=== PATIENT | male | born 1950 | race Caucasian/White ===

== ENCOUNTER 2018-01-05 15:06 | Emergency (ER) | payer MEDICARE, OTHER ==
[~2018-01-05] VITALS: Ht 182.9 cm; Wt 108.2 kg
[~2018-01-05 15:06] MED LIST: ALPR-475 PO; ATENOLOL PO; CIPR500T87 PO; HYDROCHLOROTHIAZIDE PO; IBUP-1222 PO; LOVASTATIN PO; OXYC-302 PO
[2018-01-05 15:14] VITALS: BP 134/56
[2018-01-05] MEDS ORDERED: METHOCARBAMOL 750 MG TABLET PO ONE (16:30)
[2018-01-05] MEDS ORDERED: KETOROLAC 30 MG/1 ML IM ONE (16:30)
[2018-01-05] MEDS ORDERED: KETOROLAC 30 MG/1 ML ONE (16:53)
[2018-01-05] MEDS ORDERED: METHOCARBAMOL 750 MG TABLET ONE (16:53)
== END 2018-01-05 17:13 | disposition home or self-care (01) ==
LOC: ED 17:05
DX: M51.36 Other intervertebral disc degeneration, lumbar region (principal); M12.88 Other specific arthropathies, not elsewhere classified, other specified site; I10 Essential (primary) hypertension
CPT/HCPCS: 72110; 96372; 99284; J1885

== ENCOUNTER → 2018-05-23 | Outpatient (CLI) | payer MEDICARE, OTHER ==
[~2018-05-23] MED LIST changes: +CHOL200024 PO; +IBUP-1223 PO
[2018-05-23 13:08] LABS: MICROSCOPIC NOT IND
[2018-05-23 13:09] LABS: BASOPHILS # (AUTO) 0.02 x10^3/uL (0-0.1); BASOPHILS % (AUTO) 0 % (0-1); EOSINOPHILS # (AUTO) 0.12 x10^3/uL (0-0.4); EOSINOPHILS % (AUTO) 2 % (1-7); LYMPHOCYTES % (AUTO) 10 % (22-44); MD NO; MEAN CORPUSCULAR HEMOGLOBIN 33.1 pg (27.5-34.5); MEAN CORPUSCULAR HGB CONC 34.4 g/dL (33.2-36.2); MEAN PLATELET VOLUME 6.8 fL (7.4-10.4); MONOCYTES # (AUTO) 1.44 x10^3/uL (0.2-0.8); MONOCYTES % (AUTO) 18 % (2-9); NEUTROPHILS # (AUTO) 5.59 x10^3/uL (1.8-6.8); NEUTROPHILS % (AUTO) 70 % (42-75); PLATELET COUNT 221 x10^3/uL (130-400); RED BLOOD COUNT 4.81 x10^6/uL (4.38-5.82); RED CELL DISTRIBUTION WIDTH 13.7 % (9.4-14.8)
[2018-05-23 13:10] LABS: CULTURE INDICATED? NO
[2018-05-23 13:24] LABS: INTERNATIONAL NORMALIZED RATIO 1.07 (0.93-1.1); PROTHROMBIN TIME 11.2 Seconds (9.6-11.5)
[2018-05-23 14:46] LABS: ALANINE AMINOTRANSFERASE 23 U/L (12-78); ALBUMIN 3.8 g/dL (3.4-5.0); ANION GAP 5 mmol/L (5-15); CALCIUM 9.5 mg/dL (8.5-10.1); CHLORIDE 102 mmol/L (98-107); CREATININE 1.04 mg/dL (0.7-1.3)
[2018-05-23 14:48] LABS: ALKALINE PHOSPHATASE 67 U/L (45-117); BILIRUBIN,TOTAL 0.9 mg/dL (0.2-1.0); TOTAL PROTEIN 7.4 g/dL (6.4-8.2)
== END | disposition home or self-care (01) ==
LOC: STAR 12:00
PROVIDERS: ATTEND Neurological Surgery
DX: Z01.818 Encounter for other preprocedural examination (principal); M48.061 Spinal stenosis, lumbar region without neurogenic claudication; M47.816 Spondylosis without myelopathy or radiculopathy, lumbar region; M25.78 Osteophyte, vertebrae; M89.38 Hypertrophy of bone, other site; R00.1 Bradycardia, unspecified
CPT/HCPCS: 36415; 71046; 72110; 80053; 81003; 85025; 85610; 85730; 93005

== ENCOUNTER 2018-06-04 11:54 | Inpatient (IN) | payer MEDICARE, OTHER ==
[2018-05-23 12:39] VITALS: BP 157/94
[~2018-06-04] VITALS: Ht 182.9 cm; Wt 116.5 kg
[~2018-06-04 11:54] MED LIST changes: +BACITRACIN 50,000 UNIT ONE; +BUPIVACAINE/PF 0.25% ONE; +EPINEPHRINE 1 MG/ML, 1ML ONE; +VANCOMYCIN 1,000 MG ONE
[2018-06-04] MEDS ORDERED: LACTATED RINGERS 1,000 ML IV SCH (12:31)
[2018-06-04] MEDS ORDERED: THROMBIN 20,000 UNIT VIAL TP ONE (14:22)
[2018-06-04] MEDS ORDERED: MIDAZOLAM 1 MG/ML, 2ML ONE (15:07)
[2018-06-04] MEDS ORDERED: FENTANYL PF 250 MCG/5ML ONE (15:07)
[2018-06-04] MEDS ORDERED: PROPOFOL 10 MG/ML, 20ML ONE (17:20)
[2018-06-04] MEDS ORDERED: DEXAMETHASONE 4 MG/ML, 1ML ONE (17:20)
[2018-06-04] MEDS ORDERED: CEFAZOLIN 1,000 MG ONE (17:20)
[2018-06-04] MEDS ORDERED: SUCCINYLCHOLINE 20 MG/ML, 10ML ONE (17:20)
[2018-06-04] MEDS ORDERED: ONDANSETRON 2MG/ML, 2ML ONE (17:20)
[2018-06-04] MEDS ORDERED: GLYCOPYRROLATE 0.2MG/1ML, 5ML ONE (17:20)
[2018-06-04] MEDS ORDERED: EPHEDRINE 50 MG/ML, 1ML ONE (17:20)
[2018-06-04] MEDS ORDERED: BUPIVACAINE/PF 0.25% ONE (17:38)
[2018-06-04] MEDS ORDERED: LABETALOL 5MG/ML, 20ML IV PRN (18:00)
[2018-06-04] MEDS ORDERED: PROMETHAZINE 25 MG/ML, 1ML IV PRN (18:00)
[2018-06-04] MEDS ORDERED: hydrALAzine 20 MG/ML, 1ML IV PRN (18:00)
[2018-06-04] MEDS ORDERED: OXYcodone 5 MG/5 ML ORAL.SOL UDC PO PRN (18:00)
[2018-06-04] MEDS ORDERED: MEPERIDINE/PF 25MG/0.5ML IVPush PRN (18:00)
[2018-06-04] MEDS ORDERED: ALBUTEROL SULFATE 2.5 MG/3 ML NPPB PRN (18:00)
[2018-06-04] MEDS ORDERED: ACETAMINOPHEN 325 MG TABLET PO PRN (18:00)
[2018-06-04] MEDS ORDERED: DIAZEPAM 5 MG/ML, 2ML IVPush PRN (18:00)
[2018-06-04] MEDS ORDERED: ONDANSETRON 2MG/ML, 2ML IVPush PRN (19:30)
[2018-06-04] MEDS ORDERED: DIPHENHYDRAMINE 50 MG/ML, 1ML IVPush PRN (19:30)
[2018-06-04] MEDS ORDERED: PHARMACY MAY ADJ FOR RENAL FX MC PRN (19:30)
[2018-06-04] MEDS ORDERED: PROMETHAZINE 25 MG/ML, 1ML IM PRN (19:30)
[2018-06-04] MEDS ORDERED: MAGNESIUM HYDROXIDE 8%, 30ML UDC PO PRN (19:30)
[2018-06-04] MEDS ORDERED: HYDROmorphone 1 MG/ML, 1ML AMP IVPush PRN (19:30)
[2018-06-04] MEDS ORDERED: BISACODYL 10 MG SUPP PR PRN (19:30)
[2018-06-04] MEDS ORDERED: HYDROmorphone PCA 30 MG/30 ML IV PRN (19:30)
[2018-06-04] MEDS: HYDROmorphone 2 MG/ML, 1ML IVPush PRN ×2 (19:42→20:02)
[2018-06-04] MEDS ORDERED: HYDROmorphone 1 MG/ML, 1ML AMP ONE (19:47)
[2018-06-04] MEDS ORDERED: OXYcodone 5 MG/5 ML ORAL.SOL UDC ONE (19:59)
[2018-06-04] MEDS ORDERED: FENTANYL PF 100 MCG/2ML ONE (20:28)
[2018-06-04] MEDS: FENTANYL PF 100 MCG/2ML IV PRN ×3 (20:33→20:50)
[2018-06-04 21:00] VITALS: BP 123/68
[2018-06-04] MEDS: SODIUM CHLORIDE FLUSH 10ML SYR IVF SCH (21:00)
[2018-06-04 23:50] VITALS: BP 114/66
[2018-06-05] MEDS: CEFAZOLIN PMX 1GM/50ML 50 ML IVPB SCH ×2 (01:28→10:27)
[2018-06-05] MEDS: NS + 20MEQ KCL 1,000 ML IV SCH ×3 (01:28→21:49)
[2018-06-05 02:51] VITALS: BP 109/70
[2018-06-05 06:00] LABS: BASOPHILS % (AUTO) 0 % (0-1); EOSINOPHILS # (AUTO) 0.13 x10^3/uL (0-0.4); EOSINOPHILS % (AUTO) 1 % (1-7); LYMPHOCYTES # (AUTO) 0.47 x10^3/uL (1-3.4); LYMPHOCYTES % (AUTO) 4 % (22-44); MD NO; MEAN CORPUSCULAR HEMOGLOBIN 32.9 pg (27.5-34.5); MEAN CORPUSCULAR VOLUME 96.6 fL (81-97); MEAN PLATELET VOLUME 7.2 fL (7.4-10.4); MONOCYTES # (AUTO) 1.08 x10^3/uL (0.2-0.8); MONOCYTES % (AUTO) 9 % (2-9); NEUTROPHILS # (AUTO) 9.89 x10^3/uL (1.8-6.8); NEUTROPHILS % (AUTO) 85 % (42-75); PLATELET COUNT 204 x10^3/uL (130-400); RED BLOOD COUNT 4.07 x10^6/uL (4.38-5.82); RED CELL DISTRIBUTION WIDTH 13.7 % (9.4-14.8)
[2018-06-05 06:10] LABS: CHLORIDE 108 mmol/L (98-107)
[2018-06-05 06:22] LABS: ANION GAP 5 mmol/L (5-15); CREATININE 1.16 mg/dL (0.7-1.3)
[2018-06-05] MEDS: ATENOLOL 25 MG TABLET PO SCH (06:29)
[2018-06-05 06:57] VITALS: BP 123/47
[2018-06-05] MEDS: SENNA/DOCUSATE TABLET PO SCH (08:26)
[2018-06-05] MEDS: HYDROCHLOROTHIAZIDE 12.5 MG CAPSULE PO SCH (08:27)
[2018-06-05] MEDS: SODIUM CHLORIDE FLUSH 10ML SYR IVF SCH ×2 (08:27→20:29)
[2018-06-05] MEDS: OXYcodone/APAP 10/325MG TABLET PO PRN ×2 (08:27→20:30)
[2018-06-05] MEDS: TIZANIDINE 4MG TABLET PO SCH ×2 (08:31→16:22)
[2018-06-05 13:20] VITALS: BP 114/64
[2018-06-05 20:08] VITALS: BP 103/58
[2018-06-06] MEDS: TIZANIDINE 4MG TABLET PO SCH ×3 (01:14→16:39)
[2018-06-06] MEDS: OXYcodone/APAP 10/325MG TABLET PO PRN ×2 (03:49→15:16)
[2018-06-06 05:38] LABS: BASOPHILS # (AUTO) 0.03 x10^3/uL (0-0.1); BASOPHILS % (AUTO) 0 % (0-1); EOSINOPHILS # (AUTO) 0.11 x10^3/uL (0-0.4); EOSINOPHILS % (AUTO) 1 % (1-7); LYMPHOCYTES # (AUTO) 1.01 x10^3/uL (1-3.4); LYMPHOCYTES % (AUTO) 11 % (22-44); MD NO; MEAN CORPUSCULAR HEMOGLOBIN 33.2 pg (27.5-34.5); MEAN CORPUSCULAR HGB CONC 34.3 g/dL (33.2-36.2); MEAN CORPUSCULAR VOLUME 96.9 fL (81-97); MEAN PLATELET VOLUME 7.2 fL (7.4-10.4); MONOCYTES # (AUTO) 1.42 x10^3/uL (0.2-0.8); MONOCYTES % (AUTO) 16 % (2-9); NEUTROPHILS # (AUTO) 6.39 x10^3/uL (1.8-6.8); NEUTROPHILS % (AUTO) 71 % (42-75); PLATELET COUNT 162 x10^3/uL (130-400); RED BLOOD COUNT 3.37 x10^6/uL (4.38-5.82); RED CELL DISTRIBUTION WIDTH 13.5 % (9.4-14.8)
[2018-06-06 05:48] LABS: ANION GAP 3 mmol/L (5-15); CALCIUM 8.6 mg/dL (8.5-10.1); CHLORIDE 106 mmol/L (98-107)
[2018-06-06 05:50] LABS: CREATININE 1.04 mg/dL (0.7-1.3)
[2018-06-06] MEDS: ATENOLOL 25 MG TABLET PO SCH (06:14)
[2018-06-06 06:48] VITALS: BP 104/64
[2018-06-06] MEDS: NS + 20MEQ KCL 1,000 ML IV SCH ×2 (08:00→16:40)
[2018-06-06] MEDS: SENNA/DOCUSATE TABLET PO SCH (08:32)
[2018-06-06] MEDS: HYDROCHLOROTHIAZIDE 12.5 MG CAPSULE PO SCH (08:33)
[2018-06-06] MEDS: SODIUM CHLORIDE FLUSH 10ML SYR IVF SCH ×2 (08:34→21:47)
[2018-06-06 15:00] VITALS: BP 144/68
[2018-06-06 19:45] VITALS: BP 92/51
[2018-06-07 00:31] VITALS: BP 150/80
[2018-06-07] MEDS: OXYcodone/APAP 10/325MG TABLET PO PRN ×4 (01:12→21:37)
[2018-06-07] MEDS: TIZANIDINE 4MG TABLET PO SCH ×3 (01:12→16:21)
[2018-06-07] MEDS: NS + 20MEQ KCL 1,000 ML IV SCH ×3 (04:00→23:53)
[2018-06-07] MEDS: ATENOLOL 25 MG TABLET PO SCH (05:26)
[2018-06-07 05:58] LABS: MEAN CORPUSCULAR HEMOGLOBIN 33.8 pg (27.5-34.5); MEAN CORPUSCULAR HGB CONC 34.8 g/dL (33.2-36.2); MEAN CORPUSCULAR VOLUME 97.1 fL (81-97); MEAN PLATELET VOLUME 7.3 fL (7.4-10.4); PLATELET COUNT 182 x10^3/uL (130-400); RED CELL DISTRIBUTION WIDTH 13.6 % (9.4-14.8)
[2018-06-07 06:02] LABS: ANION GAP 4 mmol/L (5-15); CALCIUM 8.7 mg/dL (8.5-10.1); CHLORIDE 106 mmol/L (98-107); CREATININE 1.08 mg/dL (0.7-1.3)
[2018-06-07 08:17] VITALS: BP 130/77
[2018-06-07] MEDS: SENNA/DOCUSATE TABLET PO SCH (09:00)
[2018-06-07] MEDS: SODIUM CHLORIDE FLUSH 10ML SYR IVF SCH ×2 (09:00→22:55)
[2018-06-07] MEDS: HYDROCHLOROTHIAZIDE 12.5 MG CAPSULE PO SCH (09:05)
[2018-06-07] MEDS ORDERED: OXYC-432 PO (09:15)
[2018-06-07] MEDS ORDERED: TIZA4TAB PO (09:15)
[2018-06-07 10:22] LABS: BASOPHILS # (AUTO) 0.01 x10^3/uL (0-0.1); BASOPHILS % (AUTO) 0 % (0-1); EOSINOPHILS # (AUTO) 0.12 x10^3/uL (0-0.4); EOSINOPHILS % (AUTO) 1 % (1-7); LYMPHOCYTES # (AUTO) 1.11 x10^3/uL (1-3.4); LYMPHOCYTES % (AUTO) 12 % (22-44); MD SCAN; MONOCYTES # (AUTO) 1.57 x10^3/uL (0.2-0.8); MONOCYTES % (AUTO) 18 % (2-9); NEUTROPHILS # (AUTO) 6.15 x10^3/uL (1.8-6.8); NEUTROPHILS % (AUTO) 69 % (42-75)
[2018-06-07 13:15] VITALS: BP 110/66
[2018-06-07 18:30] VITALS: BP 97/53
[2018-06-08] MEDS: TIZANIDINE 4MG TABLET PO SCH ×2 (01:00→08:15)
[2018-06-08 01:52] VITALS: BP 120/68
[2018-06-08] MEDS: OXYcodone/APAP 10/325MG TABLET PO PRN ×2 (04:32→10:44)
[2018-06-08 05:46] LABS: BASOPHILS # (AUTO) 0.02 x10^3/uL (0-0.1); BASOPHILS % (AUTO) 0 % (0-1); EOSINOPHILS # (AUTO) 0.13 x10^3/uL (0-0.4); EOSINOPHILS % (AUTO) 2 % (1-7); LYMPHOCYTES # (AUTO) 0.73 x10^3/uL (1-3.4); LYMPHOCYTES % (AUTO) 10 % (22-44); MD NO; MEAN CORPUSCULAR HEMOGLOBIN 32.5 pg (27.5-34.5); MEAN CORPUSCULAR HGB CONC 33.8 g/dL (33.2-36.2); MEAN CORPUSCULAR VOLUME 95.9 fL (81-97); MEAN PLATELET VOLUME 6.9 fL (7.4-10.4); MONOCYTES # (AUTO) 1.27 x10^3/uL (0.2-0.8); MONOCYTES % (AUTO) 17 % (2-9); NEUTROPHILS # (AUTO) 5.44 x10^3/uL (1.8-6.8); NEUTROPHILS % (AUTO) 72 % (42-75); PLATELET COUNT 181 x10^3/uL (130-400); RED BLOOD COUNT 3.58 x10^6/uL (4.38-5.82); RED CELL DISTRIBUTION WIDTH 13.1 % (9.4-14.8)
[2018-06-08 05:55] LABS: ANION GAP 5 mmol/L (5-15); CALCIUM 8.8 mg/dL (8.5-10.1); CHLORIDE 105 mmol/L (98-107); CREATININE 0.88 mg/dL (0.7-1.3)
[2018-06-08] MEDS: ATENOLOL 25 MG TABLET PO SCH (06:33)
[2018-06-08] MEDS: NS + 20MEQ KCL 1,000 ML IV SCH (07:33)
[2018-06-08 08:02] VITALS: BP 123/71
[2018-06-08] MEDS: HYDROCHLOROTHIAZIDE 12.5 MG CAPSULE PO SCH (08:15)
[2018-06-08] MEDS: SENNA/DOCUSATE TABLET PO SCH (08:15)
[2018-06-08] MEDS: SODIUM CHLORIDE FLUSH 10ML SYR IVF SCH (08:15)
[2018-06-08] MEDS ORDERED: KETOROLAC 30 MG/1 ML IVPush ONE (08:30)
[2018-06-08 10:34] VITALS: BP 116/70
== END 2018-06-08 11:10 | disposition home health service (06) | DRG 520 ==
LOC: OUT 11:54 → 4NOR 19:15 → DCLOUNGE 06-08 10:52
PROVIDERS: ADMIT Neurological Surgery; ATTEND Neurological Surgery
PROC: 0SB20ZZ Excision of Lumbar Vertebral Disc, Open Approach (ICD-10-PCS; 2018-06-04)
PROC: 01NR0ZZ Release Sacral Nerve, Open Approach (ICD-10-PCS; 2018-06-04)
PROC: 01NB0ZZ Release Lumbar Nerve, Open Approach (ICD-10-PCS; principal; 2018-06-04 15:30)
DX: M48.062 Spinal stenosis, lumbar region with neurogenic claudication (principal); E66.9 Obesity, unspecified; I10 Essential (primary) hypertension; M51.37 Other intervertebral disc degeneration, lumbosacral region; E78.00 Pure hypercholesterolemia, unspecified; R33.9 Retention of urine, unspecified; M10.9 Gout, unspecified; Z88.6 Allergy status to analgesic agent; Z68.34 Body mass index [BMI] 34.0-34.9, adult; Z85.46 Personal history of malignant neoplasm of prostate; Z82.49 Family history of ischemic heart disease and other diseases of the circulatory system; Z82.3 Family history of stroke; Z88.8 Allergy status to other drugs, medicaments and biological substances; Z87.891 Personal history of nicotine dependence
CPT/HCPCS: 36415; 72100; 80048; 85025; G0378; J0171; J0690; J1100; J1170; J1885; J2250; J2405; J2704; J3010; J3370; J3480; J3490; J0330; J7120